=== PATIENT | female | born 1980 | race Caucasian/White ===

== ENCOUNTER 2019-12-11 19:30 | Emergency (ER) | payer MEDICAID, SELFPAY ==
[~2019-12-11] VITALS: Ht 154.9 cm; Wt 68.0 kg
[2019-12-11 19:36] VITALS: BP_SYST 125
[2019-12-11] MEDS ORDERED: KETOROLAC TROMETHAMINE 30 MG VIAL IVP ONE (20:15)
[2019-12-11 21:44] LABS: BASOPHILS # (AUTO) 0.1 K/uL (0.0-0.2); BASOPHILS % (AUTO) 0.6 % (0.0-2.0); EOSINOPHILS # (AUTO) 0.1 K/uL (0.0-0.4); EOSINOPHILS % (AUTO) 1.2 % (0.0-4.0); LYMPHOCYTES % (AUTO) 27.2 % (20.5-51.5); MEAN CORPUSCULAR HEMOGLOBIN 30 pg (27-31); MEAN CORPUSCULAR HGB CONC 33 % (32-36); MONOCYTES % (AUTO) 5.8 % (1.7-9.3); NEUTROPHILS % (AUTO) 65.2 % (40.0-70.0)
[2019-12-11 21:45] LABS: HEMATOCRIT 41.4 % (36-48); HEMOGLOBIN 13.7 g/dL (12.0-16.0); MEAN CORPUSCULAR VOLUME 92 fL (79.0-98.0); PLATELET COUNT (AUTO) 253 K/uL (130-430); RED BLOOD CELL COUNT(AUTO) 4.51 MIL/uL (4.2-6.2); WHITE BLOOD COUNT (AUTO) 9.6 K/uL (4.8-10.8)
[2019-12-11 21:47] LABS: CALCIUM 8.6 mg/dL (8.4-11.0); CREATININE 0.99 mg/dL (0.55-1.30); INR 0.9 (0.8-1.2); LYMPHOCYTES # (AUTO) 2.6 K/uL (1.0-5.5); NEUTROPHILS # (AUTO) 6.3 K/uL (1.8-7.7); POTASSIUM 4.1 mmol/L (3.5-5.1); PROTHROMBIN TIME 9.3 SECS (9.5-12.5)
[2019-12-11 21:48] LABS: MONOCYTES # (AUTO) 0.6 K/uL (0.0-1.0)
[2019-12-11 21:52] LABS: ALBUMIN 3.8 g/dL (3.4-4.8); TOTAL BILIRUBIN 0.2 mg/dL (0.0-1.0)
[2019-12-11 22:17] LABS: BILIRUBIN,URINE NEGATIVE (NEGATIVE); BLOOD, URINE NEGATIVE (NEGATIVE); CLARITY/URINE SL CLOUDY (CLEAR); COLOR,URINE YELLOW (YELLOW); GLUCOSE,URINE NEGATIVE (NEGATIVE); KETONES,URINE NEGATIVE (NEGATIVE); LEUKOCYTE ESTERASE ,URINE NEGATIVE (NEGATIVE); NITRITE, URINE NEGATIVE (NEGATIVE); PROTEIN URINE NEGATIVE (NEGATIVE); UROBILINOGEN,URINE 0.2 (0.2-1.0)
[2019-12-11 22:29] VITALS: BP_SYST 125
== END 2019-12-11 22:29 | disposition home or self-care (01) ==
LOC: EEVIPCON 19:30 → SED 19:30
DX: R07.89 Other chest pain (principal); J45.909 Unspecified asthma, uncomplicated; F12.90 Cannabis use, unspecified, uncomplicated; F17.210 Nicotine dependence, cigarettes, uncomplicated; Z20.828 Contact with and (suspected) exposure to other viral communicable diseases; Z76.0 Encounter for issue of repeat prescription
CPT/HCPCS: 36415; 71045; 80053; 81003; 83880; 84484; 85025; 85610; 85730; 93005; 96374; 99285; J1885; U0003